=== PATIENT | female | born 1985 | race Caucasian/White ===

== ENCOUNTER 2018-10-08 16:50 | Inpatient (IN) ==
--- NOTE | 2018-10-08 18:20 | Emergency Department Note ---
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 [Primary Care Provider] - Forms: ED Satisfaction Letter, Work/School Release General Adult HPI - General Chief complaint: ED Abdominal Pain Stated complaint: Gallstones Time Seen by Provider: 10/08/18 18:04 - History of Present Illness Pain Scale: 10 - Related Data Home Medications Medication Instructions Recorded Confirmed FLUoxetine HCl [Prozac] 30 mg PO QAM 07/14/18 10/06/18 Lurasidone HCl [Latuda] 60 mg PO QPM 07/14/18 10/06/18 Prazosin [Minipress] 1 mg PO HS 07/14/18 10/06/18 Medroxyprogesterone Acetate 150 mg PO [id number] 10/04/18 10/06/18 [Depo-Provera] Ondansetron [Zofran ODT] 8 mg PO TID PRN 10/04/18 10/06/18 Promethazine [Phenergan] 25 mg PO Q12H PRN 10/04/18 10/06/18 Rizatriptan Benzoate [Maxalt Cap Coverer] 10 mg PO PRN PRN 10/04/18 10/06/18 Previous Rx's Medication Instructions Recorded OxyCODONE/APAP 5/325 [Percocet 1 each PO Q6HR PRN 7 Days #14 10/04/18 5/325 MG] tablet HYDROcodone/Acet 5/325 mg [[place] 1 tab PO Q6H PRN 3 Days #12 tab 10/06/18 5-325 mg] Ondansetron ODT [Zofran ODT] 4 mg SL Q6HR PRN #12 tab.rapdis 10/06/18 Polyethylene Glycol 3350 [MiraLAX] 17 gm PO BID #30 powd.pack 10/06/18 Allergies Allergy/AdvReac Type Severity Reaction Status Date / Time acetaminophen [From Percocet] Allergy Rash Verified 10/08/18 16:54 Erythromycin Base Allergy Vomiting Verified 10/08/18 16:54 lamotrigine [From Lamictal] Allergy Rash Verified 10/08/18 16:54 oxycodone [From Percocet] Allergy Rash Verified 10/08/18 16:54 tramadol [From Ultram] AdvReac See Verified 10/08/18 16:54 Comments Past Medical History - Past Medical History Medical history: Reports: no medical history Psychiatric history: Reports: depression, 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 - Social History Smoking Status: Current every day smoker Smokeless Tobacco Status: No Alcohol use: Reports: none Drug use: Reports: none Course Vital Signs Temperature 97.7 F 10/08/18 16:54 Pulse Rate 103 10/08/18 16:54 Respiratory Rate 20 10/08/18 16:54 Blood Pressure 90/63 10/08/18 16:54 O2 Sat by Pulse Oximetry 97 10/08/18 16:54 Temperature 97.7 F 10/08/18 18:19 Pulse Rate 103 10/08/18 18:19 Respiratory Rate 20 10/08/18 18:19 Blood Pressure 90/63 10/08/18 18:19 O2 Sat by Pulse Oximetry 97 10/08/18 18:19 Oxygen Delivery Oxygen Delivery Room Air Medical Decision Making - Lab Data Result diagrams: 10/08/18 19:04 10/08/18 19:04 Lab Results 10/08/18 10/08/18 10/08/18 Range/Units 19:04 19:04 19:21 WBC 10.0 (4.3-11.1) K/mcL RBC 4.78 (3.82-4.97) M/mcL Hgb 13.8 (11.5-15.4) g/dL Hct 40.5 (35.3-44.9) % MCV 84.7 (83.0-100.0) fL MCH 28.9 (28.0-33.3) pg MCHC 34.1 (31.6-35.5) g/dL RDW 13.5 (11.5-14.5) % Plt Count 273 (140-400) K/mcL MPV 10.8 (9.4-12.4) fL Immature Gran % 0.4 (0-4) % Seg Neutrophils % 80.9 % Lymphocytes % 11.8 % Monocytes % 6.3 % Eosinophils % 0.4 % Basophils % 0.2 % Neutrophils # 8.1 (1.6-8.9) K/mcL Lymphocytes # 1.2 (0.6-4.6) K/mcL Monocytes # 0.6 (0.0-1.3) K/mcL Eosinophils # 0.0 (0.0-0.6) K/mcL Basophils # 0.0 (0.0-0.2) K/mcL Sodium 137 (136-145) mEq/L Potassium 4.0 (3.5-5.1) mEq/L Chloride 103 (98-107) mEq/L Carbon Dioxide 25 (23-29) mEq/L BUN 19 (6-20) mg/dL Creatinine 0.84 (0.60-1.20) mg/dL Est GFR ( Amer) > 60 (> 60) Est GFR (Non-Af Amer) > 60 (> 60) BUN/Creatinine Ratio 23 (6-26) Glucose 109 H (70-105) mg/dL Calculated Osmolality 287 (280-300) Calcium 9.5 (8.6-10.3) mg/dL Total Bilirubin 1.3 H (0.3-1.0) mg/dL Direct Bilirubin 0.8 H (0.0-0.2) mg/dL Indirect Bilirubin 0.5 (0.0-1.2) mg/dL AST 533 H (13-39) Units/L ALT 357 H (7-52) Units/L Alkaline Phosphatase 144 H (34-104) Units/L Serum Total Protein 7.1 (6.4-8.9) g/dL Albumin 4.1 (3.5-5.7) g/dL Globulin 3.0 (2.4-3.5) g/dL Albumin/Globulin Ratio 1.4 (1.1-2.2) Lipase 16 (11-82) Units/L Urine Color Dark Yellow (Yellow) Urine Clarity Clear (Clear) Urine pH 7.5 (5.0-8.0) pH Units Ur Specific [place] 1.023 (1.010-1.025) Urine Protein 30 H (Neg-Trace) mg/dL Urine Glucose (UA) Normal (Normal) mg/dL Urine Ketones Negative (Negative) mg/dL Urine Blood Negative (Negative) Urine Nitrite Negative (Negative) Urine Bilirubin Small H (Negative) Urine Urobilinogen Normal (Normal) mg/dL Ur Leukocyte Esterase Trace H (Negative) Urine Microscopic RBC 0-3 (0-3) per hpf Urine Microscopic WBC 0-3 (0-3) per hpf Ur Squamous Epith Cells Many H (None-Few) per lpf Urine Bacteria Few (None-Few) per hpf Hyaline Casts None Seen (None-Few) per lpf Urine Yeast Few H (None Seen) per hpf Ur Culture Indicated? YES A (NO) Attestation Statement - Attestation Attestation: I examined this patient and my medical decision-making was reviewed with the Mike willoughby Physician. I agree with the documented findings, disposition and treatment plan as described except to the extent set forth below. Patient presents to the etiology complaint of abdominal pain. Patient is 4 days status post laparoscopic cholecystectomy. Patient presents Sunday having increasing pain. Today she states she is having pain again. She is vomiting and not keeping anything down. When she was here this weekend they did a CT that showed a possible stone or common bile duct. She was evaluated by surgery. Patient states she does not have a follow-up appointment with GI or general surgery. On exam she is not in distress. She does have diffuse abdominal ten derness which is worse in the epigastric and right upper quadrant area. Her incisions are clean dry and intact. Plan. Basic labs. Pain meds fluids and nausea meds. Patient now with elevated LFTs. Discuss with GI who will perform ERCP tomorrow. Admitted to hospitalist. Do not believe she needs any further imaging at this time.
[2018-10-08] MEDS ORDERED: Ondansetron 4 MG/2 ML VIAL IVP ONE (18:37)
[2018-10-08] MEDS ORDERED: *HR* FentaNYL (PF) 100 MCG/2 ML VIAL IVP ONE ×2 (18:37→20:27)
[2018-10-08] MEDS ORDERED: 0.9 % Sodium Chloride 1,000 ML IVC ONE ×2 (18:38→20:04)
--- NOTE | 2018-10-08 18:57 | Emergency Department Note ---
Disposition Clinical Impression: Choledocholithiasis, Elevated LFTs Disposition: Admitted As Inpatient Condition: Fair Time of Disposition: 20:06 General Adult HPI - General Chief complaint: ED Abdominal Pain Stated complaint: Gallstones Time Seen by Provider: 10/08/18 18:04 Source: patient Limitations: no limitations Nursing Notes Reviewed: Yes Vital Signs Reviewed: Yes - History of Present Illness HPI Narrative: Patient is a 32-year-old female with a past medical history of buprenorphine therapy, recent cholecystectomy and depression presents to the emergency department for evaluation of epigastric and right upper quadrant pain that has been constant since she has had her surgery. The patient underwent a cholecystectomy on October 042018-4 weeks of right upper quadrant pain with an ultrasound positive for cholelithiasis. She states after the surgery she began having this epigastric and right upper quadrant pain and she was seen in the ER 2 days postop in which she had a CT scan that showed a residual gallbladder stone possibly in the biliary tree but also possibly not in the biliary tree him leftover from surgery. She continues to have pain in that she has been given prescriptions for both [place] and Percocet and returns to the ED today because she continues to have worsening pains associated with nausea but no emesis. She states that she had a normal bowel movement earlier today with the help of MiraLAX which is normal for her it she does have chronic constipation. She denies any fevers but admits to chills. Pain Scale: 10 - Related Data Home Medications Medication Instructions Recorded Confirmed FLUoxetine HCl [Prozac] 30 mg PO QAM 07/14/18 10/06/18 Lurasidone HCl [Latuda] 60 mg PO QPM 07/14/18 10/06/18 Prazosin [Minipress] 1 mg PO HS 07/14/18 10/06/18 Medroxyprogesterone Acetate 150 mg PO [id number] 10/04/18 10/06/18 [Depo-Provera] Ondansetron [Zofran ODT] 8 mg PO TID PRN 10/04/18 10/06/18 Promethazine [Phenergan] 25 mg PO Q12H PRN 10/04/18 10/06/18 Rizatriptan Benzoate [Maxalt Slurry Control Tender] 10 mg PO PRN PRN 10/04/18 10/06/18 Buprenorphine HCl/Naloxone HCl 1 each SL 10/08/18 [Buprenorphin-Naloxon 8-2 mg Sl] Previous Rx's Medication Instructions Recorded OxyCODONE/APAP 5/325 [Percocet 1 each PO Q6HR PRN 7 Days #14 10/04/18 5/325 MG] tablet HYDROcodone/Acet 5/325 mg [[place] 1 tab PO Q6H PRN 3 Days #12 tab 10/06/18 5-325 mg] Ondansetron ODT [Zofran ODT] 4 mg SL Q6HR PRN #12 tab.rapdis 10/06/18 Polyethylene Glycol 3350 [MiraLAX] 17 gm PO BID #30 powd.pack 10/06/18 Allergies Allergy/AdvReac Type Severity Reaction Status Date / Time acetaminophen [From Percocet] Allergy Rash Verified 10/08/18 16:54 Erythromycin Base Allergy Vomiting Verified 10/08/18 16:54 lamotrigine [From Lamictal] Allergy Rash Verified 10/08/18 16:54 oxycodone [From Percocet] Allergy Rash Verified 10/08/18 16:54 tramadol [From Ultram] AdvReac See Verified 10/08/18 16:54 Comments All systems ED: reviewed and negative except as stated. Review of Systems: As Per HPI Constitutional: Reports: chills. Denies: fever Cardiovascular: Denies: chest pain, palpitations, dyspnea on exertion, edema, syncope Respiratory: Denies: cough, dyspnea, wheezes Gastrointestinal: Reports: abdominal pain, nausea. Denies: diarrhea Genitourinary: Denies: urgency, dysuria, discharge Musculoskeletal: Reports: back pain. Denies: neck pain Integumentary: Denies: rash Past Medical History - Past Medical History Attestation: Yes The following information was validated with the patient. 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 Resting comfortably when I enter the room. HEAD: Normocephalic; atraumatic. EYES: PERRL, no scleral icterus. NOSE: The nose is normal in appearance without rhinorrhea RESP: Normal chest excursion with respiration; breath sounds clear and equal bilaterally; no wheezes, rhonchi, or rales CARD: Regular rhythm, without murmurs, rub or gallop ABD: Non-distended; Tender in the epigastrum and RUQ, and with guarding but without rigidity or rebound. SKIN: Normal for age and race; warm and dry; no apparent lesions - General Limitations: no limitations General appearance: alert, in no apparent distress Course Course Narrative: Upon review of the patient's past medical records patient was seen on October [address] Lazcano in which she underwent cholecystectomy with ICG Dina angiogram. Without any complications according to the intraoperative report. This is performed due to the patient reporting pain in the right upper quadrant associated with meals adamant going on for at least 4 weeks with a gallbladder ultrasound positive for cholelithiasis. She was seen in the emergency department 2 days after she had the cholecystectomy she began having nausea and vomiting and abdominal discomfort is worse than prior to surgery. She had a CT of the abdomen and pelvis which did show spell stone that is possibly spell during surgery but not actually in the biliary tree according to review by the surgeon at the time Dr. Ceja. Upon review of the patient's CT imaging impression states that there is not an immediate hyperdensity identified in the region of the gallbladder fossa concerning for retained stone within the biliary system measuring 6 mm with moderate to large volume of stool present within the colon. Plan at this time is to evaluate the patient's abdominal pain with lab works including LFTs as well as a lipase she will be offered Zofran for her nausea. She will need to undergo repeat CT imaging to evaluate for any p ostoperative complications such as infection. - Reevaluation(s) Reevaluation #1: Patient's LFTs were elevated including her a LT, AST and alkaline phosphatase. Given these findings and a prior CT scan was done I decided not to repeat CT scan of the abdomen and pelvis. I consult with Dr. Koehler discussed my concerns for choledocholithiasis and discuss admission of the patient for ERCP and he agreed with that plan. Consult with the hospitalist and they requested blood cultures. Dr. Arevalo agreed to accept the patient. The patient's pain was treated with a dose of fentanyl she received IV fluid for hydration. Vital Signs Temperature 97.7 F 10/08/18 16:54 Pulse Rate 103 10/08/18 16:54 Respiratory Rate 20 10/08/18 16:54 Blood Pressure 90/63 10/08/18 16:54 O2 Sat by Pulse Oximetry 97 10/08/18 16:54 Temperature 98.8 F 10/08/18 21:41 Pulse Rate 72 10/08/18 21:41 Respiratory Rate 17 10/08/18 21:41 Blood Pressure 111/71 10/08/18 21:41 O2 Sat by Pulse Oximetry 98 10/08/18 21:41 Oxygen Delivery Oxygen Delivery Room Air Medical Decision Making - Medical Records Medical records reviewed: Yes I reviewed the patient's medical records. - Lab Data Lab results reviewed: Yes I reviewed the patient's lab results. Result diagrams: 10/08/18 19:04 10/08/18 19:04 Lab Results 10/08/18 10/08/18 10/08/18 Range/Units 19:04 19:04 19:21 WBC 10.0 (4.3-11.1) K/mcL RBC 4.78 (3.82-4.97) M/mcL Hgb 13.8 (11.5-15.4) g/dL Hct 40.5 (35.3-44.9) % MCV 84.7 (83.0-100.0) fL MCH 28.9 (28.0-33.3) pg MCHC 34.1 (31.6-35.5) g/dL RDW 13.5 (11.5-14.5) % Plt Count 273 (140-400) K/mcL MPV 10.8 (9.4-12.4) fL Immature Gran % 0.4 (0-4) % Seg Neutrophils % 80.9 % Lymphocytes % 11.8 % Monocytes % 6.3 % Eosinophils % 0.4 % Basophils % 0.2 % Neutrophils # 8.1 (1.6-8.9) K/mcL Lymphocytes # 1.2 (0.6-4.6) K/mcL Monocytes # 0.6 (0.0-1.3) K/mcL Eosinophils # 0.0 (0.0-0.6) K/mcL Basophils # 0.0 (0.0-0.2) K/mcL Sodium 137 (136-145) mEq/L Potassium 4.0 (3.5-5.1) mEq/L Chloride 103 (98-107) mEq/L Carbon Dioxide 25 (23-29) mEq/L BUN 19 (6-20) mg/dL Creatinine 0.84 (0.60-1.20) mg/dL Est GFR ( Amer) > 60 (> 60) Est GFR (Non-Af Amer) > 60 (> 60) BUN/Creatinine Ratio 23 (6-26) Glucose 109 H (70-105) mg/dL Calculated Osmolality 287 (280-300) Calcium 9.5 (8.6-10.3) mg/dL Total Bilirubin 1.3 H (0.3-1.0) mg/dL Direct Bilirubin 0.8 H (0.0-0.2) mg/dL Indirect Bilirubin 0.5 (0.0-1.2) mg/dL AST 533 H (13-39) Units/L ALT 357 H (7-52) Units/L Alkaline Phosphatase 144 H (34-104) Units/L Serum Total Protein 7.1 (6.4-8.9) g/dL Albumin 4.1 (3.5-5.7) g/dL Globulin 3.0 (2.4-3.5) g/dL Albumin/Globulin Ratio 1.4 (1.1-2.2) Lipase 16 (11-82) Units/L Urine Color Dark Yellow (Yellow) Urine Clarity Clear (Clear) Urine pH 7.5 (5.0-8.0) pH Units Ur Specific [place] 1.023 (1.010-1.025) Urine Protein 30 H (Neg-Trace) mg/dL Urine Glucose (UA) Normal (Normal) mg/dL Urine Ketones Negative (Negative) mg/dL Urine Blood Negative (Negative) Urine Nitrite Negative (Negative) Urine Bilirubin Small H (Negative) Urine Urobilinogen Normal (Normal) mg/dL Ur Leukocyte Esterase Trace H (Negative) Urine Microscopic RBC 0-3 (0-3) per hpf Urine Microscopic WBC 0-3 (0-3) per hpf Ur Squamous Epith Cells Many H (None-Few) per lpf Urine Bacteria Few (None-Few) per hpf Hyaline Casts None Seen (None-Few) per lpf Urine Yeast Few H (None Seen) per hpf Ur Culture Indicated? YES A (NO)
[2018-10-08] MEDS ORDERED: Isovue-370 500 ML BOTTLE IVP ONE (19:22)
[2018-10-08 19:29] LABS: Basophils % 0.2 %; Eosinophils % 0.4 %; Hematocrit 40.5 % (35.3-44.9); Hemoglobin 13.8 g/dL (11.5-15.4); Immature Granulocytes % 0.4 % (0-4); Lymphocytes # 1.2 K/mcL (0.6-4.6); Lymphocytes % 11.8 %; Mean Corpuscular HGB Conc 34.1 g/dL (31.6-35.5); Mean Corpuscular Hemoglobin 28.9 pg (28.0-33.3); Mean Corpuscular Volume 84.7 fL (83.0-100.0); Mean Platelet Volume 10.8 fL (9.4-12.4); Monocytes # 0.6 K/mcL (0.0-1.3); Monocytes % 6.3 %; Neutrophils # 8.1 K/mcL (1.6-8.9); Platelet Count 273 K/mcL (140-400); Red Blood Count 4.78 M/mcL (3.82-4.97); Red Cell Distribution Width 13.5 % (11.5-14.5); Segmented Neutrophils % 80.9 %
[2018-10-08 19:41] LABS: Bilirubin,Urine Small (Negative); Blood,Urine Negative (Negative); Clarity,Urine Clear (Clear); Color,Urine Dark Yellow (Yellow); Glucose,Urine (UA) Normal (Normal); Ketones,Urine Negative (Negative); Leukocyte Esterase,Urine Trace (Negative); Nitrite,Urine Negative (Negative); PH,Urine 7.5 pH Units (5.0-8.0); Protein,Urine 30 mg/dL (Neg-Trace); Specific Gravity,Urine 1.023 (1.010-1.025); Urobilinogen,Urine Normal (Normal)
[2018-10-08 19:43] LABS: Bacteria,Urine Few per hpf (None-Few); Hyaline Casts,Urine None Seen per lpf (None-Few); RBC,Urine 0-3 per hpf (0-3); Squamous Epithelial Cell,Urine Many per lpf (None-Few); WBC,Urine 0-3 per hpf (0-3)
[2018-10-08 19:44] LABS: Alanine Aminotransferase 357 Units/L (7-52); Albumin 4.1 g/dL (3.5-5.7); Albumin/Globulin Ratio 1.4 (1.1-2.2); Alkaline Phosphatase 144 Units/L (34-104); Aspartate Amino Transferase 533 Units/L (13-39); BUN/Creatinine Ratio 23 (6-26); Bilirubin,Direct 0.8 mg/dL (0.0-0.2); Bilirubin,Indirect 0.5 mg/dL (0.0-1.2); Bilirubin,Total 1.3 mg/dL (0.3-1.0); Blood Urea Nitrogen 19 mg/dL (6-20); Calcium 9.5 mg/dL (8.6-10.3); Carbon Dioxide 25 mEq/L (23-29); Chloride 103 mEq/L (98-107); Glucose 109 mg/dL (70-105); Lipase 16 Units/L (11-82); Osmolality,Calculated 287 (280-300); Sodium 137 mEq/L (136-145); Total Protein 7.1 g/dL (6.4-8.9); eGFR For Non-African Americans > 60 (> 60)
[2018-10-08 19:52] LABS: Yeast,Urine Few per hpf (None Seen)
[2018-10-08] MEDS ORDERED: Naloxone 0.4 MG/ML INJ IVP PRN (23:46)
[2018-10-08] MEDS ORDERED: Ondansetron 4 MG/2 ML VIAL IVP PRN (23:47)
[2018-10-08] MEDS: Ketorolac 30 MG/ML VIAL IVP PRN (23:59)
--- NOTE | 2018-10-09 00:54 | Internal Med History&Physical ---
<Antoinette Herrera E - Last Filed: 10/09/18 02:52> Date of Encounter: 10/09/18 Time of Encounter: 01:00 Internal Medicine - H&P: HPI Chief complaint: abdominal pain Admitted From: Home Plans for Post Hospital Care: Home History of present illness: Ms. Garner is a 32 year old female with past medical history of depression and opiod pain medication abuse. She had a Cholecystectomy on October 04 with no c omplications after a 4 week history of nausea and vomiting after meals. She came to the ER on October 06 for continued right upper quadrant pain and received a CT at that time which showed a possible common bile duct stone but at that time it was believed that there was a possibility this was not located in the bile duct. She was discharged with pain medication and zofran for nausea. Patient states that her nausea has gotten worse as well as her pain has become worse and now radiates to her back just beneath her shoulder blades bilaterally. She states that typically this pain is a sharp stabbing pain which is 10 out of 10 between sharp stabbing pains it is a tall ate at a 7 out of 10. Patient states that she has not vomited due to poor oral intake but does feel nauseous whenever she has the stabbing pain. Patient does state she has a history of constipation for which she takes MiraLAX. Patient admits to a history of pain medication abuse for which she is now on Suboxone. Social history: Denies alcohol and drug use. Current smoker half pack per day. History of pain medication abuse Family history: Patient denies any significant family history on mother or father's side including but not limited to CVA, [place], cancer Imaging: Abdomen pelvis CT on October 06 showed status post cholecystectomy, indeterminate hyperdensity identified in the region of the gallbladder fossa which is concerning for retained stone within the biliary system measures 6 mm, moderate to large volume of stool present within the colon. No additional imaging was ordered Patient's white blood cell count was 10.0, total bilirubin 1.3, direct bilirubin 0.8, AST 533, AST 357, alkaline phosphatase 144, lipase 16 all other labs within normal limits Urine showed a dark yellow 7.5 pH, 1.023 specific [place], small amount of bilirubin, trace leukocyte esterase, 30 protein, few yeast and culture was indicated and reflexed Dr. Emmanuel was contacted and he recommended an ERCP tomorrow for removal of common bile duct stone. Past Med Surg Social Fam HX - Past Medical History Medical history: no medical history Additional medical history: depression Psychiatric history: depression, other - Past Surgical History Additional surgical history: D&C , "MOOD DISORDER" - Social History Smoking Status: Current every day smoker Smokeless Tobacco Status: No Alcohol use: none Drug use: none Internal Medicine - H&P: Meds FLUoxetine HCl [Prozac] 30 mg PO QAM 07/14/18 [History] Lurasidone HCl [Latuda] 60 mg PO QPM 07/14/18 [History] Prazosin [Minipress] 1 mg PO HS 07/14/18 [History] Medroxyprogesterone Acetate [Depo-Provera] 150 mg PO [id number] 10/04/18 [History] Ondansetron [Zofran ODT] 8 mg PO TID PRN 10/04/18 [History] Promethazine [Phenergan] 25 mg PO Q12H PRN 10/04/18 [History] Rizatriptan Benzoate [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 [employer]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] 10 mg PO PRN PRN 10/04/18 [History] Buprenorphine HCl/Naloxone HCl [Buprenorphin-Naloxon 8-2 mg Sl] 1.5 tab SL DAILY 10/08/18 [History] Dicyclomine Hcl [Bentyl] 20 mg PO Q8H PRN 10/08/18 [History] Polyethylene Glycol 3350 [MiraLAX] 17 gm PO DAILY PRN 10/08/18 [History] Allergy/AdvReac Type Severity Reaction Status Date / Time Erythromycin Base Allergy Vomiting Verified 10/08/18 16:54 lamotrigine [From Lamictal] Allergy Rash Verified 10/08/18 16:54 oxycodone [From Percocet] Allergy Rash Verified 10/08/18 16:54 tramadol [From Ultram] AdvReac See Verified 10/08/18 16:54 Comments All Systems PM: A 10-system review of systems was performed and is negative for pertinent findings except as documented above in the HPI. - Constitutional Constitutional: chills, fatigue, no fever(s), no weakness - EENT Eyes: no change in vision Nose, mouth and throat: dry mouth, no nasal congestion, no nasal discharge, no sinus pain, no sinus pressure - Cardiovascular Cardiovascular ROS IM: no chest pain, no edema, no palpitations - Respiratory Respiratory: no cough, no dyspnea, no chest congestion - Gastrointestinal Gastrointestinal: abdominal pain (Sharp stabbing pain in the right upper quadr ant as well as a dull achy pain throughout her entire abdomen), bloating, constipation, nausea, vomiting (Not today due to poor oral intake) - Musculoskeletal Musculoskeletal ROS IM: back pain (Below shoulder blades) - Integumentary Integumentary IM: no new lesions, no rash, no jaundice - Psychiatric Psychiatric: anxiety - Constitutional Vitals: Temp Pulse Resp BP Pulse Ox 98.0 F 65 16 103/62 98 10/09/18 00:05 10/09/18 00:05 10/09/18 00:05 10/09/18 00:05 10/09/18 00:05 Exam: General: AAO 3, answers questions appropriately, moderate distress Head: normocephalic, atraumatic Eyes: SHANNON, no icterus Mouth: PHILIPPE membranes moist Neck: Trachea midline, no lymphadenopathy Cardio: RRR, no mumurs, rubs, or gallops Respiratory: CTAB, no wheezing, rhonchi, rales Abd: normal bowel sounds, guarding and rigidity noted throughout abdomen, pain on light palpation especially to the right upper quadrant Extremties: no pedal edema, pulses equal bilaterally, warm Skin: warm, dry, intact Internal Med - H&P Results - Labs CBC & Chem 7: 10/08/18 19:04 10/08/18 19:04 Labs: Short CBC 10/08/18 Range/Units 19:04 WBC 10.0 (4.3-11.1) K/mcL Hgb 13.8 (11.5-15.4) g/dL Hct 40.5 (35.3-44.9) % Plt Count 273 (140-400) K/mcL Neutrophils # 8.1 (1.6-8.9) K/mcL BMP 10/08/18 19:04 Sodium 137 Potassium 4.0 Chloride 103 Carbon Dioxide 25 BUN 19 Creatinine 0.84 Glucose 109 H Calcium 9.5 Liver Function 10/08/18 Range/Units 19:04 Total Bilirubin 1.3 H (0.3-1.0) mg/dL Direct Bilirubin 0.8 H (0.0-0.2) mg/dL AST 533 H (13-39) Units/L ALT 357 H (7-52) Units/L Alkaline Phosphatase 144 H (34-104) Units/L Albumin 4.1 (3.5-5.7) g/dL Urine 10/08/18 Range/Units 19:21 Urine Color Dark Yellow (Yellow) Urine Clarity Clear (Clear) Urine pH 7.5 (5.0-8.0) pH Units Ur Specific [place] 1.023 (1.010-1.025) Urine Protein 30 H (Neg-Trace) mg/dL Urine Glucose (UA) Normal (Normal) mg/dL - Assessment and Plan (1) Choledocholithiasis Current Visit: Yes Status: Acute Assessment and plan: CT scan from October 06 showed status post cholecystectomy, indeterminate hyperdensity identified in the region of the gallbladder fossa which is concerning for retained stone within the biliary system that measures 6 mm, moderate to large volume of stool present within the colon. Due to patient's symptoms upon review presentation to the ED it is likely that this is a obstructing stone of the common bile duct Patient's labs show elevated AST, LT, bilirubin quite possibly due to retained stone Dr. Emmanuel was contacted and he will schedule ERCP for tomorrow Pain management as needed and as below (2) Abdominal pain Current Visit: Yes Status: Acute Assessment and plan: Most likely due to patient's choledocholithiasis Due to patient's history of pain medication abuse we will use Toradol and Ofiramiv her pain management if possible Patient educated on use of pain medications If patient does not tolerate Toradol and IV acetaminophen we will consider use of opioid pain medications Qualifiers: Abdominal location: right upper quadrant Qualified Code(s): R10.11 - Right upper quadrant pain (3) UTI (urinary tract infection) Current Visit: Yes Status: Suspected Assessment and plan: Patient's urinalysis showed dark yellow urine pH 7.5, specific gravity 1.023, 30 protein, small bilirubin, trace leukocyte esterase, few yeast. Urine culture reflexed Continue to monitor for signs of infection Treatment pending urine culture Qualifiers: Urinary tract infection type: site unspecified Hematuria presence: without hematuria Qualified Code(s): N39.0 - Urinary tract infection, site not specified (4) Elevated LFTs Current Visit: Yes Status: Acute Assessment and plan: Most likely due to retained stone in the common bile duct Dr. Emmanuel to remove common bile duct stone Continue to monitor for resolution of elevated LFTs (5) History of illicit drug use Current Visit: No Status: Chronic Assessment and plan: For pain management we will try to avoid use of opioid pain medications Patient is in pain and we will do want to manage this Toradol every 6 hours and Ofiramiv every 6 hours these are to be given staggered every 3 hours If after a few doses this pain regimen is not working we will consider other options including opiate pain medications (6) Nicotine use disorder Current Visit: No Status: Chronic Assessment and plan: Current every day smoker half pack per day Nicotine patch Smoking cessation encouraged (7) DVT prophylaxis Current Visit: Yes Status: Acute Assessment and plan: SCD S - Time Spent With Patient Total time spent is greater than 50% in coordination of care (as documented) at patient's floor/unit and/or counseling patient: <Abram Quintanilla D - Last Filed: 10/09/18 04:55> Date of Encounter: 10/09/18 Internal Medicine - H&P: HPI History of present illness: Ms. Garner is a 32 year old female All Systems PM: A 10-system review of systems was performed and is negative for pertinent findings except as documented above in the HPI. - Constitutional Vitals: Temp Pulse Resp BP Pulse Ox 98.2 F 77 16 116/73 99 10/09/18 04:40 10/09/18 04:40 10/09/18 04:40 10/09/18 04:40 10/09/18 04:40 Internal Med - H&P Results - Labs CBC & Chem 7: 10/08/18 19:04 10/08/18 19:04 Labs: Short CBC 10/08/18 Range/Units 19:04 WBC 10.0 (4.3-11.1) K/mcL Hgb 13.8 (11.5-15.4) g/dL Hct 40.5 (35.3-44.9) % Plt Count 273 (140-400) K/mcL Neutrophils # 8.1 (1.6-8.9) K/mcL BMP 10/08/18 19:04 Sodium 137 Potassium 4.0 Chloride 103 Carbon Dioxide 25 BUN 19 Creatinine 0.84 Glucose 109 H Calcium 9.5 Liver Function 10/08/18 Range/Units 19:04 Total Bilirubin 1.3 H (0.3-1.0) mg/dL Direct Bilirubin 0.8 H (0.0-0.2) mg/dL AST 533 H (13-39) Units/L ALT 357 H (7-52) Units/L Alkaline Phosphatase 144 H (34-104) Units/L Albumin 4.1 (3.5-5.7) g/dL Urine 10/08/18 Range/Units 19:21 Urine Color Dark Yellow (Yellow) Urine Clarity Clear (Clear) Urine pH 7.5 (5.0-8.0) pH Units Ur Specific [place] 1.023 (1.010-1.025) Urine Protein 30 H (Neg-Trace) mg/dL Urine Glucose (UA) Normal (Normal) mg/dL - Time Spent With Patient Total time spent is greater than 50% in coordination of care (as documented) at patient's floor/unit and/or counseling patient: - Attending Attestation I saw and evaluated the patient. I reviewed the residents note, performed my own physical examination and agree with findings and plan as documented in the residents note. Patient seen and examined on 10/09/18. Patient presents with continue right upper quadrant pain, likely secondary to common bile duct stone. Dr. Emmanuel of GI will see patient in the morning. Will treat pain with alternating tylenol and toradol, patient has history of pain medication abuse. Will continue to monitor. Follow up GI recommendations. Currently patient's pain is well tolerated, sleeping upon entering her room for exam.
[2018-10-09] MEDS ORDERED: Naloxone 0.4 MG/ML INJ IVP PRN (01:21)
[2018-10-09] MEDS ORDERED: Acetaminophen IV 1,000 MG/100 ML INFUS..BTL IVPB PRN ×2 (02:13→07:41)
[2018-10-09] MEDS: Nicotine 21 MG PATCH.TD24 TD SCH (03:23)
[2018-10-09] MEDS: Pantoprazole 40 MG VIAL IVP SCH (04:19)
[2018-10-09 06:05] LABS: Basophils % 0.3 %; Eosinophils # 0.2 K/mcL (0.0-0.6); Eosinophils % 2.6 %; Hematocrit 39.5 % (35.3-44.9); Hemoglobin 12.9 g/dL (11.5-15.4); Immature Granulocytes % 0.2 % (0-4); Lymphocytes # 1.6 K/mcL (0.6-4.6); Lymphocytes % 23.7 %; Mean Corpuscular HGB Conc 32.7 g/dL (31.6-35.5); Mean Corpuscular Hemoglobin 28.5 pg (28.0-33.3); Mean Corpuscular Volume 87.2 fL (83.0-100.0); Mean Platelet Volume 10.7 fL (9.4-12.4); Monocytes # 0.5 K/mcL (0.0-1.3); Monocytes % 7.6 %; Neutrophils # 4.3 K/mcL (1.6-8.9); Platelet Count 268 K/mcL (140-400); Red Blood Count 4.53 M/mcL (3.82-4.97); Red Cell Distribution Width 13.8 % (11.5-14.5); Segmented Neutrophils % 65.6 %
[2018-10-09] MEDS: Ketorolac 30 MG/ML VIAL IVP PRN ×3 (06:18→20:10)
[2018-10-09 06:33] LABS: Albumin 3.9 g/dL (3.5-5.7); Albumin/Globulin Ratio 1.6 (1.1-2.2); Alkaline Phosphatase 155 Units/L (34-104); Aspartate Amino Transferase 494 Units/L (13-39); BUN/Creatinine Ratio 16 (6-26); Bilirubin,Total 2.2 mg/dL (0.3-1.0); Blood Urea Nitrogen 14 mg/dL (6-20); Calcium 9.1 mg/dL (8.6-10.3); Carbon Dioxide 26 mEq/L (23-29); Chloride 106 mEq/L (98-107); Globulin 2.5 g/dL (2.4-3.5); Glucose 100 mg/dL (70-105); Osmolality,Calculated 289 (280-300); Potassium 4.3 mEq/L (3.5-5.1); Sodium 139 mEq/L (136-145); Total Protein 6.4 g/dL (6.4-8.9); eGFR For Non-African Americans > 60 (> 60)
[2018-10-09 06:50] LABS: Alanine Aminotransferase 536 Units/L (7-52)
[2018-10-09] MEDS ORDERED: Pantoprazole 40 MG VIAL IVP SCH (09:00)
--- NOTE | 2018-10-09 11:52 | Gastroenterology Consult Note ---
<Tyrell Lopez - Last Filed: 10/09/18 11:50> Date of Encounter: 10/09/18 Time of Encounter: 10:15 - Assessment and plan (1) Choledocholithiasis Current Visit: Yes Status: Acute Assessment and plan: CT showed indeterminate hyperdensity in the region of the gallbladder fossa concern for retained stone measuring 6 mm. On admission TB 1.3, AST 533, ALT 357, alk phos 144. Today TB 2.2, AST 494, ALT 536, alk phos 155. Plan for ERCP today. Keep NPO for procedure. (2) Abdominal pain Current Visit: Yes Status: Acute Assessment and plan: Likely due to choledocholithiasis. Plan for ERCP today. Continue pain control. Qualifiers: Abdominal location: right upper quadrant Qualified Code(s): R10.11 - Right upper quadrant pain (3) Elevated LFTs Current Visit: Yes Status: Acute Assessment and plan: Likely secondary to choledocholithiasis. - Time Spent With Patient Total time spent is greater than 50% in coordination of care (as documented) at patient's floor/unit and/or counseling patient: GI History of Present Illness - Data of Consult Patient: new to practice Consult date: 10/09/18 Requesting Physician: Terry Arevalo MD - Consult Narrative Reason for consult: ERCP History of present illness: Ms. Garner is a 32 year old female with PMHx of depression and pain medication abuse who presented with abdominal pain. She had cholecystectomy on 10/04/[address] Richards. She came to the ED on 10/06 with continued RUQ pain. CT showed indeterminate hyperdensity in the region of the gallbladder fossa concern for retained stone measuring 6 mm, but at that time it was believed that there was a possibility this was not located in the bile duct. She was discharged home with pain medication and anti-emetics. She returned yesterday due to continued abdominal pain and nausea. On admission TB 1.3, AST 533, ALT 357, alk phos 144. Today TB 2.2, AST 494, ALT 536, alk phos 155. Procedures: None NSAIDs: None Anticoagulation: None Past Med Surg Social Fam HX - Past Medical History Medical history: no medical history Additional medical history: depression Psychiatric history: depression, other - Past Surgical History Additional surgical history: D&C , "MOOD DISORDER" - Social History Smoking Status: Current every day smoker Smokeless Tobacco Status: No Alcohol use: none Drug use: none - Gastrointestinal Gastrointestinal: Present: as per HPI - Constitutional Constitutional: as per HPI - EENT Eyes: as per HPI Ears: Present: as per HPI Nose, mouth and throat: Present: as per HPI - Cardiovascular Cardiovascular ROS: Present: as per HPI - Respiratory Respiratory IM: Present: as per HPI - Genitourinary Genitourinary: Absent: change in color, Urinary frequency - Neurological ROS Neurological GI: Present: as per HPI - Hematologic/Lymphatic Hematologic/Lymphatic pediatric: Present: as per HPI - Musculoskeletal Musculoskeletal ROS GI: Present: as per HPI - Integumentary Integumentary GI: Present: as per HPI - Psychiatric ROS Psychiatric GI: Present: as per HPI - Endocrine Endocrine IM: Present: as per HPI - Constitutional Vitals: Temp Pulse Resp BP Pulse Ox 98.6 F 73 18 125/72 95 10/09/18 11:10 10/09/18 11:10 10/09/18 11:10 10/09/18 11:10 10/09/18 11:10 General appearance: Present: cooperative, A&O X 3, no acute distress, answers questions appropriately - Head Head exam: Present: atraumatic, normocephalic - Eye Eye exam: Present: normal appearance, sclera anicteric - ENT ENT exam: Present: mucous membranes moist - Neck Neck exam general surgery: Present: normal inspection, trachea midline - Respiratory Respiratory exam: Present: CTAB. Absent: rales, rhonchi - Cardiovascular Cardiovascular exam: Present: RRR, +S1, +S2 - GI/Abdominal GI/Abdominal exam: Present: soft, tenderness (RUQ, epigastric), no peritoneal signs. Absent: distended, firm, guarding - Rectal Rectal exam: Present: deferred - Extremities Exam Extremities exam: Present: warm - Neurological Exam Neurological exam: Present: no focal deficits - Psychiatric Psychiatric exam: Present: normal affect, normal mood - Skin Skin exam: Present: dry, intact, normal color, warm Results - Labs CBC & Chem 7: 10/09/18 05:43 10/09/18 05:43 Labs: Last Result 10/09/18 05:43 Calcium 9.1 Entire Visit 10/09/18 10/09/18 05:43 05:43 Hgb 12.9 Hct 39.5 Total Bilirubin 2.2 H AST 494 H ALT 536 H Consult Discharge Plan - Plan Referrals: Fauzia Dao, [facility] [Primary Care Provider] - <Jj Emmanuel - Last Filed: 10/09/18 14:37> Date of Encounter: 10/09/18 Time of Encounter: 14:00 - Time Spent With Patient Total time spent is greater than 50% in coordination of care (as documented) at patient's floor/unit and/or counseling patient: GI History of Present Illness - Data of Consult Requesting Physician: Terry Arevalo MD - Consult Narrative History of present illness: Ms. Garner is a 32 year old female - Constitutional Vitals: Temp Pulse Resp BP Pulse Ox 98.3 F 67 18 103/64 98 10/09/18 13:55 10/09/18 13:55 10/09/18 13:55 10/09/18 13:55 10/09/18 13:55 Results - Labs CBC & Chem 7: 10/09/18 05:43 10/09/18 05:43 Labs: Last Result 10/09/18 05:43 Calcium 9.1 Entire Visit 10/09/18 10/09/18 05:43 05:43 Hgb 12.9 Hct 39.5 Total Bilirubin 2.2 H AST 494 H ALT 536 H - Attending Attestation I have personally performed a face to face evaluation on this patient. I have reviewed and agree with the care plan. History and Exam by me shows: Pt seen complaining of upper abdominal pain. On examination alert and awake abdomen is soft but does has mild epigastric tenderness. Assessment: Patient is s/p GB surgery now elevated LFTs concerning for a retained CBD stone. Recent CT scan did not show any collection of bile/biloma. Recommendation: ERCP today.
--- NOTE | 2018-10-09 12:52 | Anesthesia Evaluation PreOp ---
Date of Encounter: 10/09/18 Time of Encounter: 12:50 - Past History Planned Operation: ERCP Cardiac History: Denies any Significant Hx Pulmonary History: Smoker, Asthma (childhood) SAAS ARCHITECT History: Other (opioid drug abuse hx - on suboxone but off for last 7 days, migraines) Other Medical History: Denies Any Significant HX, Other (CBD stone) Anesthesia History: No Prior Anesthetic Complications, Past Anesthesia (jean-claude 10/04/2018) : No Alcohol Use: none Drug use: none Medications and Allergies FLUoxetine HCl [Prozac] 30 mg PO QAM 07/14/18 [History] Lurasidone HCl [Latuda] 60 mg PO QPM 07/14/18 [History] Prazosin [Minipress] 1 mg PO HS 07/14/18 [History] Medroxyprogesterone Acetate [Depo-Provera] 150 mg PO Q3DDFTSO 10/04/18 [History] Ondansetron [Zofran ODT] 8 mg PO TID PRN 10/04/18 [History] Promethazine [Phenergan] 25 mg PO Q12H PRN 10/04/18 [History] Rizatriptan Benzoate [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] 10 mg PO PRN PRN 10/04/18 [History] Buprenorphine HCl/Naloxone HCl [Buprenorphin-Naloxon 8-2 mg Sl] 1.5 tab SL DAILY 10/08/18 [History] Dicyclomine Hcl [Bentyl] 20 mg PO Q8H PRN 10/08/18 [History] Polyethylene Glycol 3350 [MiraLAX] 17 gm PO DAILY PRN 10/08/18 [History] Allergy/AdvReac Type Severity Reaction Status Date / Time Erythromycin Base Allergy Vomiting Verified 10/08/18 16:54 lamotrigine [From Lamictal] Allergy Rash Verified 10/08/18 16:54 oxycodone [From Percocet] Allergy Rash Verified 10/08/18 16:54 tramadol [From Ultram] AdvReac See Verified 10/08/18 16:54 Comments - Meds/Allergy Pre-op Review Medications Reviewed: Yes Allergies Reviewed: Yes Beta Blockers on Current Med List: No Anesthesia Results - Labs 10/09/18 05:43 10/09/18 05:43 Laboratory Tests 10/06/18 16:45 Urine Test Negative Anesthesia Exam Vital Signs/O2 Sat/Glucose, Most Recent Temp Pulse Resp BP Pulse Ox 98.6 F 73 18 125/72 95 10/09/18 11:10 10/09/18 11:10 10/09/18 11:10 10/09/18 11:10 10/09/18 11:10 Blood Glucose* 88 Weight: 82 kg NPO (# of Hours): > 8 hr - HEENT Pupil (Motor): Pupils equal Mallampati: II Teeth: Normal, Missing Oral Opening: Greater than 3 - SAAS ARCHITECT LOC: Oriented SAAS ARCHITECT Motor: Normal RUE, Normal LUE, Normal RLE, Normal LLE, Normal Face SAAS ARCHITECT Sensory: Normal: RUE, LUE, RLE, LLE, Face - Cardiac Rhythm: Regular Murmur: None - Pulmonary Breath Sounds: bilateral Clear Respiratory Effort: Symmetrical Anesthesia Assess/Plan ASA Score: 2 Level of consciousness: Cooperative, Oriented Anesthetic Plan: General Monitoring Plan: Standard Monitors Recovery Plan: PACU
[2018-10-09] MEDS ORDERED: Ondansetron 4 MG/2 ML VIAL ONE (13:19)
[2018-10-09] MEDS ORDERED: Lidocaine -MPF 2% 2 ML VIAL ONE (13:20)
[2018-10-09] MEDS ORDERED: *HR* Succinylcholine 200 MG/10 ML VIAL IVP ONE (13:20)
[2018-10-09] MEDS ORDERED: *HR* Propofol 200 MG/20 ML VIAL IVP ONE (13:20)
--- NOTE | 2018-10-09 13:20 | Event Note ---
Date of Encounter: 10/09/18 Time of Encounter: 12:58 geoff was seen and examined at bedside. currently reports that her Nausea and vomiting has resolved since admission. pain is controlled. NPO for procedure NAD, Axox3 CLTA RRR s1 and s2 abdomen has post op bruising, mildly tender in all quadrants , shoemaker sign negative A/P Choledocholithiasis On admission TB 1.3, AST 533, ALT 357, alk phos 144. Today TB 2.2, AST 494, ALT 536, alk phos 155. Gi was consulted - NPO for ERCP
[2018-10-09] MEDS: Ringers Solution, Lactated 1,000 ML IVC SCH (13:59)
[2018-10-09] MEDS ORDERED: Ondansetron 4 MG/2 ML VIAL IVP ONE (14:01)
[2018-10-09] MEDS ORDERED: Dexamethasone 4 MG/ML VIAL ONE (14:01)
[2018-10-09] MEDS ORDERED: *HR* FentaNYL (PF) 100 MCG/2 ML VIAL IVP PRN (14:01)
[2018-10-09] MEDS ORDERED: *HR* Promethazine 25 MG/ML VIAL IVP PRN (14:01)
[2018-10-09] MEDS ORDERED: Indomethacin 50 MG SUPP.RECT RC ONE (15:20)
--- NOTE | 2018-10-09 15:56 | Anesthesia Evaluation Post Op ---
Date of Encounter: 10/09/18 Time of Encounter: 15:56 - Vital Signs Vital Signs: Last Vital Signs Temp 98.7 F 10/09/18 15:32 Pulse 52 10/09/18 15:52 Resp 16 10/09/18 15:52 BP 124/74 10/09/18 15:52 Pulse Ox 97 10/09/18 15:52 - Lungs Lungs: Clear Ascult./Percussion - Airway Airway: Non-obstructed - Cardiovascular Regular Rate - Mental Status Mental Status: Alert & Oriented, Answers Appropriately - Pain Pain Scale: 2 - Nausea Vomiting Nausea Vomiting: Not Present - Hydration Hydration: NPO - Discharge PostOp Status: Transfer Patient to floor
[2018-10-09] MEDS ORDERED: (Rizatriptan Benzoate [Maxalt Mlt] 10 MG) PO PRN (18:31)
[2018-10-09 18:39] LABS: Hepatitis B Surface Antigen Nonreactive (Nonreactive)
[2018-10-09 19:07] LABS: Hepatitis B Core IgM Nonreactive (Nonreactive)
[2018-10-09 19:08] LABS: Hepatitis C Virus Antibody Nonreactive (Nonreactive)
[2018-10-09 19:10] LABS: Hepatitis A Antibody IgM Nonreactive (Nonreactive)
[2018-10-10] MEDS: Nicotine 21 MG PATCH.TD24 TD SCH (04:15)
[2018-10-10] MEDS ORDERED: Acetaminophen 650 MG RECTAL SUPP RC PRN (08:44)
[2018-10-10] MEDS: Ringers Solution, Lactated 1,000 ML IVC SCH (08:57)
[2018-10-10] MEDS ORDERED: FLUoxetine HCl 10 MG CAPSULE PO SCH (09:00)
[2018-10-10] MEDS: Pantoprazole 40 MG VIAL IVP SCH (09:13)
[2018-10-10] MEDS ORDERED: NALOXONE HCL SL SCH (09:30)
[2018-10-10] MEDS ORDERED: BUPRENORPHINE HCL SL SCH (09:30)
--- NOTE | 2018-10-10 10:58 | Discharge Summary ---
- NOTES TO OUTPATIENT PROVIDER Notes to Outpatient Provider: peyman mulligan with surgery and GI along with PCP as OP. Orders not resulted at time of discharge: Pending orders 10/08/18 20:24 Culture,Blood [BC] Stat Date of Encounter: 10/10/18 Time of Encounter: 10:56 - Discharge Diagnosis (1) Choledocholithiasis Priority: Primary Status: Acute (2) DVT prophylaxis Priority: Secondary Status: Acute (3) Elevated LFTs Priority: Secondary Status: Acute (4) Nicotine use disorder Priority: Secondary Status: Chronic Hospital course: "Ms. Garner is a 32 year old female with past medical history of depression and opiod pain medication abuse. She had a Cholecystectomy on October 04 with no complications after a 4 week history of nausea and vomiting after meals. She came to the ER on October 06 for continued right upper quadrant pain and received a CT at that time which showed a possible common bile duct stone but at that time it was believed that there was a possibility this was not located in the bile duct. She was discharged with pain medication and zofran for nausea. Patient states that her nausea has gotten worse as well as her pain has become worse and now radiates to her back just beneath her shoulder blades bilaterally. She states that typically this pain is a sharp stabbing pain which is 10 out of 10 between sharp stabbing pains it is a tall ate at a 7 out of 10. Patient states that she has not vomited due to poor oral intake but does feel nauseous whenever she has the stabbing pain. Patient does state she has a history of constipation for which she takes MiraLAX. Patient admits to a history of pain medication abuse for which she is now on Suboxone. Social history: Denies alcohol and drug use. Current smoker half pack per day. History of pain medication abuse Family history: Patient denies any significant family history on mother or father's side including but not limited to CVA, MT, cancer Imaging: Abdomen pelvis CT on October 06 showed status post cholecystectomy, indeterminate hyperdensity identified in the region of the gallbladder fossa which is concerning for retained stone within the biliary system measures 6 mm, moderate to large volume of stool present within the colon. No additional imaging was ordered Patient's white blood cell count was 10.0, total bilirubin 1.3, direct bilirubin 0.8, AST 533, AST 357, alkaline phosphatase 144, lipase 16 all other labs within normal limits Urine showed a dark yellow 7.5 pH, 1.023 specific [place], small amount of bilirubin, trace leukocyte esterase, 30 protein, few yeast and culture was indicated and reflexed Dr. Emmanuel was contacted and he recommended an ERCP tomorrow for removal of common bile duct stone." patient presented with above presentation and had above ED course. GI was consulted and she underwent ERCP with resolution of her symptoms. diet was increased and she tolerated with out nausea or vomiting. she was pain free. she was cleared by GI for discharge. she is to follow up with surgery and GI as OP. LFTS ordered for 1 week post discharge. she was counseled on smoking cessation and was provided nicotine patches. Discharge discussed with: patient, nurse, learning and development consultant Time spent discussing smoking cessation with patient: 3 to 10 minutes - Time Spent with Patient Total time spent providing and/or coordinating discharge services: Time spent: Less than 30 minutes - Discharge Medications Prescriptions: New Nicotine Patch [Nicoderm] 21 mg TD Q24H #30 patch.[email or web address] Continued Medroxyprogesterone Acetate [Depo-Provera] 150 mg PO [id number] Promethazine [Phenergan] 25 mg PO Q12H PRN PRN Reason: NAUSE/VOMITING Rizatriptan Benzoate [Max[employer]] 10 mg PO PRN PRN PRN Reason: Migraine Headache Buprenorphine HCl/Naloxone HCl [Buprenorphin-Naloxon 8-2 mg Sl] 1.5 tab SL DAILY Polyethylene Glycol 3350 [MiraLAX] 17 gm PO DAILY PRN PRN Reason: Constipation Dicyclomine Hcl [Bentyl] 20 mg PO Q8H PRN PRN Reason: IBS Lurasidone HCl [Latuda] 60 mg PO QPM FLUoxetine HCl [Prozac] 30 mg PO QAM Prazosin [Minipress] 1 mg PO HS Discontinued Ondansetron [Zofran ODT] 8 mg PO TID PRN PRN Reason: Nausea Home Medications: FLUoxetine HCl [Prozac] 30 mg PO QAM 07/14/18 [History] Lurasidone HCl [Latuda] 60 mg PO QPM 07/14/18 [History] Prazosin [Minipress] 1 mg PO HS 07/14/18 [History] Medroxyprogesterone Acetate [Depo-Provera] 150 mg PO [id number] 10/04/18 [History] Promethazine [Phenergan] 25 mg PO Q12H PRN 10/04/18 [History] Rizatriptan Benzoate [Maxalt [employer] Transcriptionist] 10 mg PO PRN PRN 10/04/18 [History] Buprenorphine HCl/Naloxone HCl [Buprenorphin-Naloxon 8-2 mg Sl] 1.5 tab SL DAILY 10/08/18 [History] Dicyclomine Hcl [Bentyl] 20 mg PO Q8H PRN 10/08/18 [History] Polyethylene Glycol 3350 [MiraLAX] 17 gm PO DAILY PRN 10/08/18 [History] Nicotine Patch [Nicoderm] 21 mg TD Q24H #30 patch.td24 10/10/18 [Rx] Allergies/Adverse Reactions: Allergy/AdvReac Type Severity Reaction Status Date / Time Erythromycin Base Allergy Vomiting Verified 10/08/18 16:54 lamotrigine [From Lamictal] Allergy Rash Verified 10/08/18 16:54 oxycodone [From Percocet] Allergy Rash Verified 10/08/18 16:54 tramadol [From Ultram] AdvReac See Verified 10/08/18 16:54 Comments Date of admission: 10/09/18 05:52 Primary care physician: Fauzia Dao CNP Consults: 10/08/18 20:06 Consult to Gastroenterology [CONS] Stat Consulting Provider: Gastroenterology Mary Ellen Reason for Consult: ERCP Time Notified: 20:07 Call Completed: Yes - Constitutional Vitals: Temp Pulse Resp BP Pulse Ox 98.9 F 54 20 103/61 97 10/10/18 07:00 10/10/18 07:00 10/10/18 07:00 10/10/18 07:00 10/10/18 07:00 Exam: NAD, Axox3,mild icterus CLTA RRR s1 and s2, no murmurs abdomen has post op bruising, nontender to palpation. no organomegally , shoemaker sign negative . no edema or calf tendenress of fatimah extremities, strength is 5/5 through out Axox3 no focal deficit - Patient Status Disposition: Home, Self-Care Condition: Fair Functional capacity at discharge: independent ambulation Overall status at discharge: patient is progressing back to baseline - Discharge Instructions Follow Up With: Fauzia Dao, NET APPLICATION ARCHITECT [Primary Care Provider] - - Diet and Activity Activity: increase activity as tolerated Diet: low fat, low cholesterol
[2018-10-10 12:16] VITALS: BP 112/70
[2018-10-10] MEDS ORDERED: Lurasidone 20 MG TABLET PO SCH (18:00)
== END 2018-10-10 11:47 | disposition home or self-care (01) | DRG 252 ==
LOC: 2ANU 16:50 → EMEROOARM 16:50 → 2ANU 21:21
PROVIDERS: ADMIT Pediatrics; ATTEND Pediatrics